=== PATIENT | female | born 1985 | race Asian ===

== ENCOUNTER 2017-06-07 20:01 | Emergency (ER) | payer OTHER ==
[~2017-06-07] VITALS: Ht 149.9 cm; Wt 58.2 kg
[2017-06-07 20:05] VITALS: BP 108/75
== END 2017-06-07 23:50 | disposition home or self-care (01) ==
LOC: ED 23:30
DX: J02.8 Acute pharyngitis due to other specified organisms (principal); J00 Acute nasopharyngitis [common cold]; B97.89 Other viral agents as the cause of diseases classified elsewhere
CPT/HCPCS: 71046; 99284